=== PATIENT | female | born 1950 | race Caucasian/White ===

== ENCOUNTER 2017-07-10 20:44 | Emergency (ER) | payer OTHER ==
[~2017-07-10] VITALS: Ht 149.9 cm; Wt 44.9 kg
[2017-07-10 20:55] VITALS: Ht 149.9 cm; Wt 44.9 kg
[2017-07-10] MEDS ORDERED: ASPIRIN 325 MG TAB PO STA (20:57)
--- NOTE | 2017-07-10 22:01 | RADRPT ---
PROCEDURE: XR Chest. CLINICAL INDICATION: Chest pain. TECHNIQUE: Single frontal view of the chest. COMPARISON: None. FINDINGS: Cardiomegaly. Mild atelectasis at the left costophrenic angle. The lungs are otherwise clear. No sig ns of pleural fluid or pneumothorax are seen. The osseous structures and soft tissues are unremarkab le. IMPRESSION: Mild atelectasis at the left costophrenic angle, and the lungs otherwise clear. RPTAT: [facility] Physician Duy Date Time Electronically viewed and signed by Physician Duy on 07/10/2017 22:01 RS/
[2017-07-10] MEDS ORDERED: ERGO500037 PO (23:21)
[2017-07-10] MEDS ORDERED: ATEN50TA PO (23:21)
[2017-07-10] MEDS ORDERED: ALEN70TA30 PO (23:21)
[2017-07-10] MEDS ORDERED: IBUP-1542 PO (23:21)
[2017-07-10] MEDS ORDERED: SERT50TA6 PO (23:21)
[2017-07-10] MEDS ORDERED: RANI150T5 PO (23:21)
[2017-07-10] MEDS ORDERED: ACET-141 PO (23:21)
[2017-07-10] MEDS ORDERED: CALC-516 PO (23:21)
[2017-07-10] MEDS ORDERED: ATOR10TA65 PO (23:21)
[2017-07-10] MEDS ORDERED: ASPI-535 PO (23:21)
--- NOTE | 2017-07-10 23:34 | ERD ---
ER Documentation Chief Complaint Chief Complaint HERMAN torresipitations at home; given adenosine in the fiekld HPI 56-year-old female called ambulance for palpitations. Paramedics gave her adenosine after EKG revealed SVT. This abort the SVT. She still had chest discomfort. She had had shortness of breath which resolved. Does feel mild generalized weakness. Has had SVT multiple times in the past as well. Is on atenolol ROS All systems reviewed and are negative except as per history of present illness. Medications Home Meds Reported Medications Atorvastatin Calcium (Atorvastatin Calcium) 10 Mg Tablet, 10 MG PO QHS, #30 TAB 07/10/17 Sertraline Hcl* (Sertraline Hcl*) 50 Mg Tablet, 50 MG PO DAILY, #30 TAB 07/10/17 Ranitidine Hcl* (Ranitidine Hcl*) 150 Mg Tablet, 150 MG PO Q12, #60 TAB 07/10/17 Ibuprofen* (Ibuprofen*) 600 Mg Tablet, 600 MG PO Q6, TAB 07/10/17 Atenolol* (Atenolol*) 50 Mg Tablet, 50 MG PO DAILY, #30 TAB 07/10/17 Calcium Carbonate/Vitamin D3 (OYSTER SHELL CALCIUM TABLET) 1 Each Tablet, 1 EACH PO, TAB 07/10/17 Acetaminophen* (Acetaminophen*) 500 MG Extra Strength Tablet, 500 MG PO Q4H Y for PAIN AND OR ELEVATED TEMP, TAB 07/10/17 Ergocalciferol (Vitamin D2) (VITAMIN D2) 50,000 Unit Capsule, 25957 UNIT PO ONCE A WEEK, CAP TAKE ONCE A WEEK EVERY Thursday07/10/17 Alendronate Sodium* (Fosamax*) 70 Mg Tablet, 70 MG PO Q7D, #4 TAB 07/10/17 Aspirin Ec (Aspir 81) 81 Mg Tablet.dr, 81 MG PO DAILY, #30 TAB 07/10/17 Allergies Allergies: Coded Allergies: No Known Allergy (Unverified , 07/10/17) PMhx/Soc History of Surgery: No Hx Alcohol Use: No Hx Substance Use: No Hx Tobacco Use: No Smoking Status: Never smoker Physical Exam Vitals Vital Signs Date Time Temp Pulse Resp B/P Pulse Ox O2 Delivery O2 Flow Rate FiO2 07/10/17 20:55 98.4 87 20 138/82 97 Physical Exam Const: [] Mild distress Head: Atraumatic Eyes: Normal Conjunctiva ENT: Normal External Ears, Nose and Mouth. Neck: Full range of motion.. No JVD. Resp: Clear to auscultation bilaterally Cardio: Regular rate and rhythm, no murmurs Abd: Soft, non tender, non distended. Normal bowel sounds Skin: No petechiae or rashes Ext: No cyanosis, or edema Neur: Awake and alert 3, no focal deficits Psych: Normal Mood and Affect Result Diagram: 07/10/17211207/10/172112 Results 24 hrs Laboratory Tests Test 07/10/17 21:13 07/10/17 23:17 White Blood Count 4.110^3/ul Red Blood Count 4.2510^6/ul Hemoglobin 12.2g/dl Hematocrit 37.0% Mean Corpuscular Volume 87.1fl Mean Corpuscular Hemoglobin 28.7pg Mean Corpuscular Hemoglobin Concent 33.0g/dl Red Cell Distribution Width 13.2% Platelet Count 47574^3/UL Mean Platelet Volume 11.2fl Neutrophils % 41.5% Lymphocytes % 46.7% Monocytes % 8.0% Eosinophils % 3.6% Basophils % 0.0% Nucleated Red Blood Cells % 0.0/100WBC Neutrophils # 1.710^3/ul Lymphocytes # 1.910^3/ul Monocytes # 0.310^3/ul Eosinophils # 0.210^3/ul Basophils # 0.010^3/ul Nucleated Red Blood Cells # 0.010^3/ul Sodium Level 147mmol/L Potassium Level 4.0mmol/L Chloride Level 113mmol/L Carbon Dioxide Level 24mmol/L Anion Gap 14 Blood Urea Nitrogen 18mg/dl Creatinine 0.72mg/dl Glucose Level 83mg/dl Calcium Level 8.4mg/dl Troponin I 0.022ng/ml 0.013ng/ml B-Type Natriuretic Peptide 127PG/ML Current Medications Medications (Trade) Dose Ordered Sig/Jeimy Route PRN Reason Start Time Stop Time Status Last Admin Dose Admin Aspirin (Aspirin) 325 mg ONCE STAT PO 07/10/17 20:57 07/10/17 20:58 DC 07/10/17 21:26 Procedures/MDM Applications and chest pain secondary to recurrent SVT. Unstable vital signs resolved prior to arrival to the emergency room secondary to manager privacy adenosine. Completely normal EKG and stability on the monitor after being monitored for over 2 hours in the emergency room. Patient was given aspirin. Will get length at the bedside with patient and family about SVT, the patient asked what can be done about recurrent SVT in spite of treatment. 2 sets of troponin make acute cardiac injury highly unlikely. Told her about electrophysiologic mapping and possible ablation. Discharging her with return precautions as well as primary care and cardiology follow-up. EKG interpretation: Normal sinus rhythm rate of 87, normal axis, no ST or T- wave changes concerning for acute ischemia, normal EKG. Interpretation of manager privacy EKG: SVT, rate of 220, normal axis, rate related ST depressions in V3 4 through V6, as well as inferior leads except for lead III, no ST elevations suggest STEMI. Supraventricular tachycardia. maintenance and custodian supervisor interpretation: Normal sinus rhythm with no arrhythmias Chest x-ray interpretation: I see no acute process, no infiltrate, no pulmonary edema, no pneumothorax, no fractures. Departure Diagnosis: Primary Impression: SVT (supraventricular tachycardia) Additional Impression: Chest pain Condition: Stable JOEL PEACE DO Jul 10, 2017 23:34
--- NOTE | 2017-07-10 23:34 | ERD ---
ER Documentation Chief Complaint Chief Complaint HERMAN torresipitations at home; given adenosine in the fiekld HPI 56-year-old female called ambulance for palpitations. Paramedics gave her adenosine after EKG revealed SVT. This abort the SVT. She still had chest discomfort. She had had shortness of breath which resolved. Does feel mild generalized weakness. Has had SVT multiple times in the past as well. Is on atenolol ROS All systems reviewed and are negative except as per history of present illness. Medications Home Meds Reported Medications Atorvastatin Calcium (Atorvastatin Calcium) 10 Mg Tablet, 10 MG PO QHS, #30 TAB 07/10/17 Sertraline Hcl* (Sertraline Hcl*) 50 Mg Tablet, 50 MG PO DAILY, #30 TAB 07/10/17 Ranitidine Hcl* (Ranitidine Hcl*) 150 Mg Tablet, 150 MG PO Q12, #60 TAB 07/10/17 Ibuprofen* (Ibuprofen*) 600 Mg Tablet, 600 MG PO Q6, TAB 07/10/17 Atenolol* (Atenolol*) 50 Mg Tablet, 50 MG PO DAILY, #30 TAB 07/10/17 Calcium Carbonate/Vitamin D3 (OYSTER SHELL CALCIUM TABLET) 1 Each Tablet, 1 EACH PO, TAB 07/10/17 Acetaminophen* (Acetaminophen*) 500 MG Extra Strength Tablet, 500 MG PO Q4H Y for PAIN AND OR ELEVATED TEMP, TAB 07/10/17 Ergocalciferol (Vitamin D2) (VITAMIN D2) 50,000 Unit Capsule, 95419 UNIT PO ONCE A WEEK, CAP TAKE ONCE A WEEK EVERY Thursday07/10/17 Alendronate Sodium* (Fosamax*) 70 Mg Tablet, 70 MG PO Q7D, #4 TAB 07/10/17 Aspirin Ec (Aspir 81) 81 Mg Tablet.dr, 81 MG PO DAILY, #30 TAB 07/10/17 Allergies Allergies: Coded Allergies: No Known Allergy (Unverified , 07/10/17) PMhx/Soc History of Surgery: No Hx Alcohol Use: No Hx Substance Use: No Hx Tobacco Use: No Smoking Status: Never smoker Physical Exam Vitals Vital Signs Date Time Temp Pulse Resp B/P Pulse Ox O2 Delivery O2 Flow Rate FiO2 07/10/17 20:55 98.4 87 20 138/82 97 Physical Exam Const: [] Mild distress Head: Atraumatic Eyes: Normal Conjunctiva ENT: Normal External Ears, Nose and Mouth. Neck: Full range of motion.. No JVD. Resp: Clear to auscultation bilaterally Cardio: Regular rate and rhythm, no murmurs Abd: Soft, non tender, non distended. Normal bowel sounds Skin: No petechiae or rashes Ext: No cyanosis, or edema Neur: Awake and alert 3, no focal deficits Psych: Normal Mood and Affect Result Diagram: 07/10/17211207/10/172112 Results 24 hrs Laboratory Tests Test 07/10/17 21:13 07/10/17 23:17 White Blood Count 4.110^3/ul Red Blood Count 4.2510^6/ul Hemoglobin 12.2g/dl Hematocrit 37.0% Mean Corpuscular Volume 87.1fl Mean Corpuscular Hemoglobin 28.7pg Mean Corpuscular Hemoglobin Concent 33.0g/dl Red Cell Distribution Width 13.2% Platelet Count 44907^3/UL Mean Platelet Volume 11.2fl Neutrophils % 41.5% Lymphocytes % 46.7% Monocytes % 8.0% Eosinophils % 3.6% Basophils % 0.0% Nucleated Red Blood Cells % 0.0/100WBC Neutrophils # 1.710^3/ul Lymphocytes # 1.910^3/ul Monocytes # 0.310^3/ul Eosinophils # 0.210^3/ul Basophils # 0.010^3/ul Nucleated Red Blood Cells # 0.010^3/ul Sodium Level 147mmol/L Potassium Level 4.0mmol/L Chloride Level 113mmol/L Carbon Dioxide Level 24mmol/L Anion Gap 14 Blood Urea Nitrogen 18mg/dl Creatinine 0.72mg/dl Glucose Level 83mg/dl Calcium Level 8.4mg/dl Troponin I 0.022ng/ml 0.013ng/ml B-Type Natriuretic Peptide 127PG/ML Current Medications Medications (Trade) Dose Ordered Sig/Jeimy Route PRN Reason Start Time Stop Time Status Last Admin Dose Admin Aspirin (Aspirin) 325 mg ONCE STAT PO 07/10/17 20:57 07/10/17 20:58 DC 07/10/17 21:26 Procedures/MDM Applications and chest pain secondary to recurrent SVT. Unstable vital signs resolved prior to arrival to the emergency room secondary to oncology coordinator adenosine. Completely normal EKG and stability on the monitor after being monitored for over 2 hours in the emergency room. Patient was given aspirin. Will get length at the bedside with patient and family about SVT, the patient asked what can be done about recurrent SVT in spite of treatment. 2 sets of troponin make acute cardiac injury highly unlikely. Told her about electrophysiologic mapping and possible ablation. Discharging her with return precautions as well as primary care and cardiology follow-up. EKG interpretation: Normal sinus rhythm rate of 87, normal axis, no ST or T- wave changes concerning for acute ischemia, normal EKG. Interpretation of oncology coordinator EKG: SVT, rate of 220, normal axis, rate related ST depressions in V3 4 through V6, as well as inferior leads except for lead III, no ST elevations suggest STEMI. Supraventricular tachycardia. surveillance monitor interpretation: Normal sinus rhythm with no arrhythmias Chest x-ray interpretation: I see no acute process, no infiltrate, no pulmonary edema, no pneumothorax, no fractures. Departure Diagnosis: Primary Impression: SVT (supraventricular tachycardia) Additional Impression: Chest pain Condition: Stable JOEL PEACE DO Jul 10, 2017 23:34
--- NOTE | 2017-07-10 23:34 | ERD ---
ER Documentation Chief Complaint Chief Complaint HERMAN torresipitations at home; given adenosine in the fiekld HPI 56-year-old female called ambulance for palpitations. Paramedics gave her adenosine after EKG revealed SVT. This abort the SVT. She still had chest discomfort. She had had shortness of breath which resolved. Does feel mild generalized weakness. Has had SVT multiple times in the past as well. Is on atenolol ROS All systems reviewed and are negative except as per history of present illness. Medications Home Meds Reported Medications Atorvastatin Calcium (Atorvastatin Calcium) 10 Mg Tablet, 10 MG PO QHS, #30 TAB 07/10/17 Sertraline Hcl* (Sertraline Hcl*) 50 Mg Tablet, 50 MG PO DAILY, #30 TAB 07/10/17 Ranitidine Hcl* (Ranitidine Hcl*) 150 Mg Tablet, 150 MG PO Q12, #60 TAB 07/10/17 Ibuprofen* (Ibuprofen*) 600 Mg Tablet, 600 MG PO Q6, TAB 07/10/17 Atenolol* (Atenolol*) 50 Mg Tablet, 50 MG PO DAILY, #30 TAB 07/10/17 Calcium Carbonate/Vitamin D3 (OYSTER SHELL CALCIUM TABLET) 1 Each Tablet, 1 EACH PO, TAB 07/10/17 Acetaminophen* (Acetaminophen*) 500 MG Extra Strength Tablet, 500 MG PO Q4H Y for PAIN AND OR ELEVATED TEMP, TAB 07/10/17 Ergocalciferol (Vitamin D2) (VITAMIN D2) 50,000 Unit Capsule, 82994 UNIT PO ONCE A WEEK, CAP TAKE ONCE A WEEK EVERY Thursday07/10/17 Alendronate Sodium* (Fosamax*) 70 Mg Tablet, 70 MG PO Q7D, #4 TAB 07/10/17 Aspirin Ec (Aspir 81) 81 Mg Tablet.dr, 81 MG PO DAILY, #30 TAB 07/10/17 Allergies Allergies: Coded Allergies: No Known Allergy (Unverified , 07/10/17) PMhx/Soc History of Surgery: No Hx Alcohol Use: No Hx Substance Use: No Hx Tobacco Use: No Smoking Status: Never smoker Physical Exam Vitals Vital Signs Date Time Temp Pulse Resp B/P Pulse Ox O2 Delivery O2 Flow Rate FiO2 07/10/17 20:55 98.4 87 20 138/82 97 Physical Exam Const: [] Mild distress Head: Atraumatic Eyes: Normal Conjunctiva ENT: Normal External Ears, Nose and Mouth. Neck: Full range of motion.. No JVD. Resp: Clear to auscultation bilaterally Cardio: Regular rate and rhythm, no murmurs Abd: Soft, non tender, non distended. Normal bowel sounds Skin: No petechiae or rashes Ext: No cyanosis, or edema Neur: Awake and alert 3, no focal deficits Psych: Normal Mood and Affect Result Diagram: 07/10/17211207/10/172112 Results 24 hrs Laboratory Tests Test 07/10/17 21:13 07/10/17 23:17 White Blood Count 4.110^3/ul Red Blood Count 4.2510^6/ul Hemoglobin 12.2g/dl Hematocrit 37.0% Mean Corpuscular Volume 87.1fl Mean Corpuscular Hemoglobin 28.7pg Mean Corpuscular Hemoglobin Concent 33.0g/dl Red Cell Distribution Width 13.2% Platelet Count 71826^3/UL Mean Platelet Volume 11.2fl Neutrophils % 41.5% Lymphocytes % 46.7% Monocytes % 8.0% Eosinophils % 3.6% Basophils % 0.0% Nucleated Red Blood Cells % 0.0/100WBC Neutrophils # 1.710^3/ul Lymphocytes # 1.910^3/ul Monocytes # 0.310^3/ul Eosinophils # 0.210^3/ul Basophils # 0.010^3/ul Nucleated Red Blood Cells # 0.010^3/ul Sodium Level 147mmol/L Potassium Level 4.0mmol/L Chloride Level 113mmol/L Carbon Dioxide Level 24mmol/L Anion Gap 14 Blood Urea Nitrogen 18mg/dl Creatinine 0.72mg/dl Glucose Level 83mg/dl Calcium Level 8.4mg/dl Troponin I 0.022ng/ml 0.013ng/ml B-Type Natriuretic Peptide 127PG/ML Current Medications Medications (Trade) Dose Ordered Sig/Jeimy Route PRN Reason Start Time Stop Time Status Last Admin Dose Admin Aspirin (Aspirin) 325 mg ONCE STAT PO 07/10/17 20:57 07/10/17 20:58 DC 07/10/17 21:26 Procedures/MDM Applications and chest pain secondary to recurrent SVT. Unstable vital signs resolved prior to arrival to the emergency room secondary to as400 administrator adenosine. Completely normal EKG and stability on the monitor after being monitored for over 2 hours in the emergency room. Patient was given aspirin. Will get length at the bedside with patient and family about SVT, the patient asked what can be done about recurrent SVT in spite of treatment. 2 sets of troponin make acute cardiac injury highly unlikely. Told her about electrophysiologic mapping and possible ablation. Discharging her with return precautions as well as primary care and cardiology follow-up. EKG interpretation: Normal sinus rhythm rate of 87, normal axis, no ST or T- wave changes concerning for acute ischemia, normal EKG. Interpretation of as400 administrator EKG: SVT, rate of 220, normal axis, rate related ST depressions in V3 4 through V6, as well as inferior leads except for lead III, no ST elevations suggest STEMI. Supraventricular tachycardia. compliance monitor interpretation: Normal sinus rhythm with no arrhythmias Chest x-ray interpretation: I see no acute process, no infiltrate, no pulmonary edema, no pneumothorax, no fractures. Departure Diagnosis: Primary Impression: SVT (supraventricular tachycardia) Additional Impression: Chest pain Condition: Stable JOEL PEACE DO Jul 10, 2017 23:34
[2017-07-11 01:10] VITALS: BP 102/77; PULSE 72; RESP 20
== END 2017-07-11 01:04 | disposition home or self-care (01) ==
LOC: E/R 20:44
DX: I47.1 Supraventricular tachycardia (principal); R06.02 Shortness of breath; Z79.82 Long term (current) use of aspirin
CPT/HCPCS: 36415; 71010; 80048; 83880; 84484; 85025; 93005; Z7502; Z7610

== ENCOUNTER 2017-10-12 02:24 | Emergency (ER) | END 2017-10-12 04:44 | disposition home or self-care (01) ==

== ENCOUNTER 2017-11-21 14:11 | Emergency (ER) | END 2017-11-21 18:14 | disposition home or self-care (01) ==